=== PATIENT | female | born 1985 | race Caucasian/White ===

== ENCOUNTER 2022-05-24 14:49 | Emergency (ER) | payer OTHER, SELFPAY ==
[2022-05-24 14:54] VITALS: BP 117/75; PULSE 79; RESP 16; TEMP 37; O2SAT 100; BMI 22.6
[2022-05-24] MEDS: 0.9 % SODIUM CHLORIDE 1000 ml 1,000 ML IV (15:47)
[2022-05-24 15:50] LABS: Basophils Absolute Auto 0.01 K/uL (0.00-0.30); Basophils Percent Auto 0.2 % (0.0-3.0); Eosinophils Absolute Auto 0.06 K/uL (0.00-0.50); Eosinophils Percent Auto 1.3 % (0.0-7.0); Hemoglobin* 11.7 gm/dL (12.0-16.0); Lymphocytes Absolute Auto 1.73 K/uL (0.90-2.90); Lymphocytes Percent Auto 36.8 % (20-44); Mean Corpuscular HGB Conc 33 gm/dL (32-36); Mean Corpuscular Hemoglobin 28 pg (26-34); Mean Corpuscular Volume 83 fL (80-100); Monocytes Percent Auto 7.7 % (0.0-11.0); Neutrophils Absolute Auto 2.54 K/uL (1.7-7.0); Platelet Count* 151 K/uL (140-440); RDW Coefficient of Variation % 13.6 % (11.5-15.5); Red Blood Count 4.23 m/uL (4.00-5.20); Slide Review Reflex No
[2022-05-24 16:04] LABS: Chloride* 107 mmol/L (96-114); Potassium* 3.4 mmol/L (3.6-5.1); Sodium* 139 mmol/L (135-149)
[2022-05-24 16:06] VITALS: BP 129/65; PULSE 78; RESP 16; O2SAT 98
[2022-05-24 16:07] LABS: Blood Urea Nitrogen* 9 mg/dL (5-24); Carbon Dioxide* 27 mmol/L (20-32); Creatinine* 0.5 mg/dL (0.5-1.5); Est. Creatinine Clearance* 141.41; Estimated Glomerular Filt Rate 122 ml/min; Glucose* 105 mg/dL (60-115); Prothrombin Time 15.9 Seconds
--- NOTE | 2022-05-24 16:07 | CRLHL7_ITS ---
For Patients: As a result of the Century Cures Act, medical imaging exams and procedure reports are released immediately into your electronic medical record. You may view this report before your referring provider. If you have questions, please contact your health care provider. Indication: Abnormal bleeding Technique: Sonography of the pelvis was performed. The study was performed transvaginally. Color Doppler was performed. Comparison: None Findings: The uterus measures 8.2 x 4.1 x 4.9 centimeters which is normal. Myometrium appears normal. The endometrial canal measures 5 millimeters which is within normal limits. The ovaries are normal in size and appearance. No ovarian or adnexal mass. Flow was demonstrated by color Doppler. The right ovary measures 3.4 x 1.8 x 2.3 centimeters. The left ovary measures 2.9 x 1.7 x 1.7 centimeters. There is no free fluid in the cul-de-sac. Impression: Normal examination Dictated by Bjorn Pate MD @ 05/24/2022 5:07:18 PM (Electronically Signed)
--- NOTE | 2022-05-24 16:07 | ED.NURSE ---
Bedside vaginal exam performed by . Change Lead at bedside. Ambulated to bathroom after and clean pad applied.
[2022-05-24 16:08] LABS: Partial Thromboplastin Time* 35 Seconds (23-33)
--- NOTE | 2022-05-24 16:31 | ED_ITS ---
HPI - Female Genitourinary General Date Seen: 05/24/22 <Jonah Alanis MD - Last Filed: 05/28/22 08:43> Chief complaint: Vaginal Bleeding <Jonah Alanis MD - Last Filed: 05/28/22 08:43> Stated complaint: Excessive Vaginal Bleeding <Jonah Alanis MD - Last Filed: 05/28/22 08:43> Time Seen by Provider: 05/24/22 15:16 <Jonah Alanis MD - Last Filed: 05/28/22 08:43> Source: patient <Jonah Alanis MD - Last Filed: 05/28/22 08:43> Mode of arrival: ambulatory <Jonah Alanis MD - Last Filed: 05/28/22 08:43> Limitations: no limitations <Jonah Alanis MD - Last Filed: 05/28/22 08:43> History of Present Illness HPI Narrative: Patient is a 37-year-old female who has a vaginal bleeding that is excessive today, she is started on Xarelto, for a DVT in the last 3 weeks, she has known uterine polyps, she tells me in the last 8 hours she soaked through a super G tampon every hour, she is however and no pain with this and no feeling that she might pass out or presyncopal symptoms, she does have a baseline history of mild anemia and says she gets always rejected when she gives blood. <Jonah Alanis MD - Last Filed: 05/28/22 08:43> Related Data Home medications: Home Medications Medication Instructions Recorded Confirmed buspirone 5 mg tablet 5 mg PO BID 05/22/22 05/24/22 rivaroxaban 15 mg (42)-20 mg (9) See Rx Instructions PO BID 05/22/22 05/24/22 tablets in a starter pack (Xarelto DVT-PE Treatment 30-Day Starter) vitamin B complex 1 cap PO QDAY 05/22/22 05/24/22 <Jonah Alanis MD - Last Filed: 05/28/22 08:43> Allergies/Adverse reactions: Allergies Allergy/AdvReac Type Severity Reaction Status Date / Time No Known Drug Allergies Allergy Verified 05/24/22 14:59 <Jonah Alanis MD - Last Filed: 05/28/22 08:43> Review of Systems Status of ROS: Reports: 10 or more systems reviewed and unremarkable except as noted in History and below <Jonah Alanis MD - Last Filed: 05/28/22 08:43> [facility] Medical History: Medical History Allergic rhinitis Chronic fatigue AKILA (generalized anxiety disorder) History of abnormal cervical Pap smear History of asthma History of depression History of PSVT (paroxysmal supraventricular tachycardia) History of thyroid nodule <Jonah Alanis MD - Last Filed: 05/28/22 08:43> Surgical History: Surgical History History of appendectomy (2007) History of delivery (01/27/12) History of D&C (04/15/19) <Jonah Alanis MD - Last Filed: 05/28/22 08:43> Family History: Family History Mother Depression Anxiety Father Prostate cancer Paternal Grandfather Stroke Uncle Psychiatric illness <Jonah Alanis MD - Last Filed: 05/28/22 08:43> Social History: Social History Smoking Status: Never smoker Do you use any of these nicotine containing products: None Second hand tobacco smoke exposure: No How often do you have a drink containing alcohol: never AUDIT-C Alcohol total score: 0 Non-prescribed substance use: denies use <Jonah Alanis MD - Last Filed: 05/28/22 08:43> Exam Narrative: Exam Narrative: On examination patient is in no apparent distress in room 7, pupils are equal round reactive to light there is no scleral icterus redness or paleness noted, cranial nerves 3-12 are grossly normal her chest is clear bilaterally with easy respirations, heart sounds no clicks murmurs or gallops normal S1-S2 is noted. Abdomen is scaphoid and soft there is no organomegaly bowel sounds are normal and no tenderness. With nurse Cassandra present bimanual exam is done which shows multi hips office and there is some old blood in the vaginal vault approximately 10-15 mL, no tenderness to palpation, <Jonah Alanis MD - Last Filed: 05/28/22 08:43> Const: Vital Signs, click to edit/add: Vital Signs - 24 hr 05/24/22 14:54 05/24/22 16:06 Temperature 98.6 F Pulse Rate [Pulse Oximeter] 79 78 Respiratory Rate 16 16 Blood Pressure [Ri ght Upper Arm] 117/75 129/65 Pulse Oximetry 100 98 Oxygen Delivery Me thod Room Air Room Air <Jonah Alanis MD - Last Filed: 05/28/22 08:43> Vital Signs, click to edit/add: Vital Signs - 24 hr 05/24/22 14:54 05/24/22 16:06 Temperature 98.6 F Pulse Rate [Pulse Oximeter] 79 78 Respiratory Rate 16 16 Blood Pressure [Ri ght Upper Arm] 117/75 129/65 Pulse Oximetry 100 98 Oxygen Delivery Me thod Room Air Room Air <Adiel Kate MD - Last Filed: 05/24/22 17:52> Course Vital Signs Vital signs: Initial Vital Signs Temperature 98.6 F 05/24/22 14:54 Temperature Source Temporal Artery Scan 05/24/22 14:54 Pulse Rate 79 05/24/22 14:54 Respiratory Rate 16 05/24/22 14:54 Blood Pressure 117/75 05/24/22 14:54 Blood Pressure Mean 89 05/24/22 14:54 Blood Pressure Position Sitting 05/24/22 14:54 Pulse Oximetry 100 05/24/22 14:54 Oxygen Delivery Method 05/24/22 14:54 Vital Signs Temperature 98.6 F 05/24/22 14:54 Pulse Rate 79 05/24/22 14:54 Respiratory Rate 16 05/24/22 14:54 Blood Pressure 117/75 05/24/22 14:54 Pulse Oximetry 100 05/24/22 14:54 Oxygen Delivery Method 05/24/22 14:54 Temperature 98.6 F 05/24/22 14:54 Pulse Rate 56 L 05/24/22 18:15 Respiratory Rate 16 05/24/22 18:15 Blood Pressure 127/80 05/24/22 18:15 Pulse Oximetry 100 05/24/22 18:15 Oxygen Delivery Method 05/24/22 18:15 <Jonah Alanis MD - Last Filed: 05/28/22 08:43> Initial Vital Signs Temperature 98.6 F 05/24/22 14:54 Temperature Source Temporal Artery Scan 05/24/22 14:54 Pulse Rate 79 05/24/22 14:54 Respiratory Rate 16 05/24/22 14:54 Blood Pressure 117/75 05/24/22 14:54 Blood Pressure Mean 89 05/24/22 14:54 Blood Pressure Position Sitting 05/24/22 14:54 Pulse Oximetry 100 05/24/22 14:54 Oxygen Delivery Method 05/24/22 14:54 Vital Signs Temperature 98.6 F 05/24/22 14:54 Pulse Rate 79 05/24/22 14:54 Respiratory Rate 16 05/24/22 14:54 Blood Pressure 117/75 05/24/22 14:54 Pulse Oximetry 100 05/24/22 14:54 Oxygen Delivery Method 05/24/22 14:54 Temperature 98.6 F 05/24/22 14:54 Pulse Rate 56 L 05/24/22 18:15 Respiratory Rate 16 05/24/22 18:15 Blood Pressure 127/80 05/24/22 18:15 Pulse Oximetry 100 05/24/22 18:15 Oxygen Delivery Method 05/24/22 18:15 <Adiel Kate MD - Last Filed: 05/24/22 17:52> MDM - Female Genitourinary MDM Narrative Medical decision making narrative: Through this evaluation I considered multiple diagnosis is including , threatened , dysfunctional vaginal bleeding, coagulopathy, endometritis, or other options. I spoke to the patient, we will do an ultrasound to further diagnosis also and I will have the oncoming ER physician see her for disposition and data gathering of her labs. Consideration of discussion with Gynecology, she is a patient of our clinic here. <Jonah Alanis MD - Last Filed: 05/28/22 08:43> Through this evaluation I considered multiple diagnosis is including , threatened , dysfunctional vaginal bleeding, coagulopathy, endometritis, or other options. I spoke to the patient, we will do an ultrasound to further diagnosis also and I will have the oncoming ER physician see her for disposition and data gathering of her labs. Consideration of discussion with Gynecology, she is a patient of our clinic here. Hemoglobin returns reassuring at 11.7. Transvaginal ultrasound also shows no acute findings. I did speak with the fire pilot physician on-call, Dr. Wyatt Luther, regarding these findings. It seems okay for the patient to return home to continue current plans. She could start progesterone if bleeding is excessive she becomes more symptomatic. The patient understands these options and states that she is happy to see her reassuring hemoglobin and will prefer not to take a hormone treatment unless necessary. She plans to contact her primary physician in this regard if needed. <Adiel Kate MD - Last Filed: 05/24/22 17:52> Lab Data Labs: Lab Results 05/24/22 05/24/22 05/24/22 Range/Units 15:20 15:30 15:30 WBC 4.70 (4.50-11.00) K/uL RBC 4.23 (4.00-5.20) m/uL Hgb 11.7 L (12.0-16.0) gm/dL Hct 35.0 (33.0-51.0) % MCV 83 (80-100) fL MCH 28 (26-34) pg MCHC 33 (32-36) gm/dL RDW Coeff of [place]o 13.6 (11.5-15.5) % Plt Count 151 (140-440) K/uL Neut % (Auto) 54.0 (42.0-72.0) % Lymph % (Auto) 36.8 (20-44) % [place] % (Auto) 7.7 (0.0-11.0) % Eos % (Auto) 1.3 (0.0-7.0) % Baso % (Auto) 0.2 (0.0-3.0) % Neut # (Auto) 2.54 (1.7-7.0) K/uL Lymph # (Auto) 1.73 (0.90-2.90) K/uL [place] # (Auto) 0.40 (0.00-0.90) K/UL Eos # (Auto) 0.06 (0.00-0.50) K/uL Baso # (Auto) 0.01 (0.00-0.30) K/uL INR 1.20 H (0.91-1.10) APTT 35 H (23-33) Seconds Sodium (135-149) mmol/L Potassium (3.6-5.1) mmol/L Chloride (96-114) mmol/L Carbon Dioxide (20-32) mmol/L BUN (5-24) mg/dL Creatinine (0.5-1.5) mg/dL Estimated Creat Clear Estimated GFR ml/min Glucose (60-115) mg/dL Calcium (8.4-10.6) mg/dL HCG, Qual Negative (Negative) 05/24/22 Range/Units 15:30 WBC (4.50-11.00) K/uL RBC (4.00-5.20) m/uL Hgb (12.0-16.0) gm/dL Hct (33.0-51.0) % MCV (80-100) fL MCH (26-34) pg MCHC (32-36) gm/dL RDW Coeff of [place]o (11.5-15.5) % Plt Count (140-440) K/uL Neut % (Auto) (42.0-72.0) % Lymph % (Auto) (20-44) % [place] % (Auto) (0.0-11.0) % Eos % (Auto) (0.0-7.0) % Baso % (Auto) (0.0-3.0) % Neut # (Auto) (1.7-7.0) K/uL Lymph # (Auto) (0.90-2.90) K/uL [place] # (Auto) (0.00-0.90) K/UL Eos # (Auto) (0.00-0.50) K/uL Baso # (Auto) (0.00-0.30) K/uL INR (0.91-1.10) APTT (23-33) Seconds Sodium 139 (135-149) mmol/L Potassium 3.4 L (3.6-5.1) mmol/L Chloride 107 (96-114) mmol/L Carbon Dioxide 27 (20-32) mmol/L BUN 9 (5-24) mg/dL Creatinine 0.5 (0.5-1.5) mg/dL Estimated Creat Clear 141.41 Estimated GFR 122 ml/min Glucose 105 (60-115) mg/dL Calcium 9.0 (8.4-10.6) mg/dL HCG, Qual (Negative) <Jonah Alanis MD - Last Filed: 05/28/22 08:43> Lab Results 05/24/22 05/24/22 05/24/22 Range/Units 15:20 15:30 15:30 WBC 4.70 (4.50-11.00) K/uL RBC 4.23 (4.00-5.20) m/uL Hgb 11.7 L (12.0-16.0) gm/dL Hct 35.0 (33.0-51.0) % MCV 83 (80-100) fL MCH 28 (26-34) pg MCHC 33 (32-36) gm/dL RDW Coeff of [place] 13.6 (11.5-15.5) % Plt Count 151 (140-440) K/uL Neut % (Auto) 54.0 (42.0-72.0) % Lymph % (Auto) 36.8 (20-44) % [place] % (Auto) 7.7 (0.0-11.0) % Eos % (Auto) 1.3 (0.0-7.0) % Baso % (Auto) 0.2 (0.0-3.0) % Neut # (Auto) 2.54 (1.7-7.0) K/uL Lymph # (Auto) 1.73 (0.90-2.90) K/uL [place] # (Auto) 0.40 (0.00-0.90) K/UL Eos # (Auto) 0.06 (0.00-0.50) K/uL Baso # (Auto) 0.01 (0.00-0.30) K/uL INR 1.20 H (0.91-1.10) APTT 35 H (23-33) Seconds Sodium (135-149) mmol/L Potassium (3.6-5.1) mmol/L Chloride (96-114) mmol/L Carbon Dioxide (20-32) mmol/L BUN (5-24) mg/dL Creatinine (0.5-1.5) mg/dL Estimated Creat Clear Estimated GFR ml/min Glucose (60-115) mg/dL Calcium (8.4-10.6) mg/dL HCG, Qual Negative (Negative) 01/19/23 Range/Units 15:30 WBC (4.50-11.00) K/uL RBC (4.00-5.20) m/uL Hgb (12.0-16.0) gm/dL Hct (33.0-51.0) % MCV (80-100) fL MCH (26-34) pg MCHC (32-36) gm/dL RDW Coeff of [place]o (11.5-15.5) % Plt Count (140-440) K/uL Neut % (Auto) (42.0-72.0) % Lymph % (Auto) (20-44) % [place] % (Auto) (0.0-11.0) % Eos % (Auto) (0.0-7.0) % Baso % (Auto) (0.0-3.0) % Neut # (Auto) (1.7-7.0) K/uL Lymph # (Auto) (0.90-2.90) K/uL [place] # (Auto) (0.00-0.90) K/UL Eos # (Auto) (0.00-0.50) K/uL Baso # (Auto) (0.00-0.30) K/uL INR (0.91-1.10) APTT (23-33) Seconds Sodium 139 (135-149) mmol/L Potassium 3.4 L (3.6-5.1) mmol/L Chloride 107 (96-114) mmol/L Carbon Dioxide 27 (20-32) mmol/L BUN 9 (5-24) mg/dL Creatinine 0.5 (0.5-1.5) mg/dL Estimated Creat Clear 141.41 Estimated GFR 122 ml/min Glucose 105 (60-115) mg/dL Calcium 9.0 (8.4-10.6) mg/dL HCG, Qual (Negative) <Adiel Kate MD - Last Filed: 05/24/22 17:52> Imaging Data US Vaginal: Radiologist's impression: Findings: The uterus measures 8.2 x 4.1 x 4.9 centimeters which is normal. Myometrium appears normal. The endometrial canal measures 5 millimeters which is within normal limits. The ovaries are normal in size and appearance. No ovarian or adnexal mass. Flow was demonstrated by color Doppler. The right ovary measures 3.4 x 1.8 x 2.3 centimeters. The left ovary measures 2.9 x 1.7 x 1.7 centimeters. There is no free fluid in the cul-de-sac. Impression: Normal examination <Adiel Kate MD - Last Filed: 05/24/22 17:52> Discharge Plan Discharge Clinical Impression: Dysfunctional uterine bleeding <Jonah Alanis MD - Last Filed: 05/28/22 08:43> Patient Disposition: Home, Self-Care <Jonah Alanis MD - Last Filed: 05/28/22 08:43> Condition: Stable <Jonah Alanis MD - Last Filed: 05/28/22 08:43> Additional Instructions: Continue current plans. Follow-up with OBGYN physician and hack driver as needed or scheduled. Return if worsening. <Jonah Alanis MD - Last Filed: 05/28/22 08:43> Prescriptions: No Action Xarelto DVT-PE Treat 30d Start 15 mg (42)- 20 mg (9) tablets,dose pack See Rx Instructions PO BID Rx Instructions: 15 mg twice daily until 05/29/22 then decrease to 20mg daily. orally twice a day; buspirone 5 mg tablet 5 mg PO BID vitamin B complex Capsule 1 cap PO QDAY <Jonah Alanis MD - Last Filed: 05/28/22 08:43> Follow Up/Referrals: Amita Thurman MD [Primary Care Provider] - <Jonah Alanis MD - Last Filed: 05/28/22 08:43> Stand Alone Forms: My[facility] Info Instructions <Jonah Alanis MD - Last Filed: 05/28/22 08:43>
[2022-05-24 17:22] LABS: HCG Qualitative Serum* Negative (Negative)
[2022-05-24 18:15] VITALS: BP 127/80; PULSE 56; RESP 16; O2SAT 100
== END 2022-05-24 18:09 | disposition home or self-care (01) ==
PROVIDERS: Family Medicine; Emergency Provider Emergency Medicine Emergency Medical Services; PCP Family Medicine
DX: N93.8 Other specified abnormal uterine and vaginal bleeding (principal)
CPT/HCPCS: 36415; 76830; 80048; 84703; 85025; 85610; 85730; 99284; J7030

== ENCOUNTER 2023-10-09 06:17 | Day surgery (SDC) | payer OTHER, SELFPAY ==
[2023-10-09] VITALS (7 sets, daily range): BP systolic 98–132; BP diastolic 74–92; PULSE 59–81; RESP 16–20; TEMP 36.2–37.2; O2SAT 97–100; BMI 24.5
--- OUTSIDE RECORDS SUMMARY | 2023-10-09 06:20 | XMS_ITS | Clinical Summary ---
Author Organization [facility] [facility] Address [place], [place] [address] Care Team Providers Care Scrum Project Manager Name Role Phone Amita Thurman MD Primary Care Provider Linda Parekh MD Unavailable [phone] Julia Hassan NP Unavailable Nikunj Wong Unavailable Allergies No known active allergies Medications Medication Sig Dispensed Refills Start Date End Date Status VITAMIN B COMPLEX-100 ORAL 1 Capsule. 05/22/2022 Active MULTIVITAMIN WITH IRON ORAL Take by mouth. Active cholecalciferol (Vitamin D-3) 2,000 unit capsule Take 2,000 units by mouth once daily. Active calcium carbonate (CALTRATE) 600 mg calcium (1,500 mg) tablet Take 1 Tablet (600 mg) by mouth two times daily with meals. 08/08/2023 Active busPIRone (BUSPAR) 10 mg tabletIndications :Anxiety Take 1 Tablet (10 mg) by mouth two times daily. 180 Tablet 09/24/2023 Active busPIRone (BUSPAR) 5 mg tabletIndications :Anxiety TAKE 1 TABLET BY MOUTH TWICE DAILY 180 Tablet 1 06/03/2023 09/24/2023 Discontinued (*Medication adjustment) rivaroxaban (Xarelto DVT-PE Treat 30d Start) 15 mg (42)- 20 mg (9) starter packIndications:A cute deep vein thrombosis (DVT) of right femoral vein (HC) Take as directed on package. 51 Tablet 08/06/2023 09/24/2023 Discontinued (*Med complete/Reg imen complete/Lev el of care change) rivaroxaban (Xarelto DVT-PE Treat 30d Start) 15 mg (42)- 20 mg (9) starter packIndications:A cute deep vein thrombosis (DVT) of femoral vein of right lower extremity (HC) Take as directed on package. 51 Tablet 08/07/2023 09/24/2023 Discontinued (*Med complete/Reg imen complete/Lev el of care change) Active Problems Problem Noted Date Diagnosed Date Menorrhagia with irregular cycle 09/24/2023 Iron deficiency anemia due to chronic blood loss 09/24/2023 Paroxysmal SVT (supraventricular tachycardia) Overview: 2002 consult scanned in with cardiology 2020 [place]iop[place] confirmed. Echocardiogram ordered. Endometrial polyp 04/14/2019 Thyroid nodule 06/16/2014 Overview: Stable 12/2014. Repeat in 1 yr Generalized anxiety disorder 01/22/2012 Sebaceous cyst 11/13/2011 SAGAR I (cervical intraepithelial neoplasia I) Overview: 01/15/06 ASCUS/HPV+ 01/31/06 [place]: SAGAR I 06/20/06 LSIL 02/06/07 ASCUS/HPV Negative 01/06/09 ASCUS/HPV Negative 09/19/09 ASCUS/HPV Negative 11/07/10 ASCUS/HPV Negative 11/13/11 ASCUS/HPV Negative 12/12/11 [place]: Squamous cell changes suspicious for HPV 12/19/15 ASCUS/HPV Negative 12/17/14 NIL/HPV Negative 12/19/15 ASCUS/HPV Negative 11/16/16 NIL/HPV Negative 03/04/18 NIL/HPV Negative 11/17/2020 NIL/HPV negative Plan: routine screening Pap/HPV due 11/2025 Resolved Problems Problem Noted Date Diagnosed Date Resolved Date Rh negative status during 10/28/2012 11/16/2016 Group B streptococcal infection 07/10/2012 11/16/2016 Overview: Prior pregnacy History of depres frank, currently 07/10/2012 11/16/2016 Supervision of other normal 06/06/2012 11/16/2016 Overview: Considering elective . Had a very rough recovery with tears and pain. Reviewed possible assistance post and hopefully this recovery will be easier but it is her decision about elective and can refer to [facility] 12/04/2012 Group B strep negative Breech decided against eversion will do primary unless the baby rotates Preop exam 01/13/2013 Doing PLACENTA ENCAPSULATION save placenta Last Assessment & Plan: Has concerns about during and after delivery. Had a rough recovery and depression. Worried about what will happen this time. It's a BOY Chest wall muscle strain 11/07/201002/2013 Adjustment disorder with mix ed anxiety and depressed mood 01/24/2010 01/22/2012 Post depression 11/11/200911/07 Supervision of normal first 03/10/2009 11/07/2010 Pap smear abnormality of cer vix with ASCUS favoring benign 01/04/2009 03/18/2018 Overview: 01/2009; 09/2009; 11/2010; 11/2011; 12/2015; Pap/ HPV due 11/2016 Rash and other nonspecific skin eruption 12/21/2008 01/13/2013 Mild dysplasia of cervix 02/06/2007 Low grade squamous intraepit helial lesion (LGSIL) on cervical Pap smear 06/06/2006 03/18/2018 Overview: 06/2006 Encounters Date Type Department Care Team Description 09/24/2023 8:45 AM CDT Preop Visit [facility] [place] [address] [address] Amita Thurman MD [facility] ) 09/24/2023 Travel 08/08/2023 2:50 PM CDT Office Visit [facility] [address] [place] [address] Amita Thurman MD Follow Up (Urgent Care 08/06/2023) 08/08/2023 Travel 08/06/2023 7:27 PM CDT - 08/06/2023 9:43 PM CDT Emergency [facility] [place] [address] [address] Lindsay Solis PA Acute deep vein thrombosis (DVT) of right femoral vein (HC) (Primary Dx) Discharge Disposition: Home Self Care 08/06/2023 Nurse Triage [facility] [address] [place] [address] Lina Torres RN Leg Pain/problem (Hx dvt) 07/29/2023 9:30 AM CDT Telemedicine [facility] and [address] [address] Medical Nutrition Therapy; Telehealth 07/27/2023 Travel from Last 3 Months Immunizations Name Administration Dates Next Due COVID-19 vaccine ([employer] 30mcg/0.3mL) MARLENE LAUGHLIN 07/20/2020,07/01/2020 Hepatitis A (Adult) 02/09/2008,02/19/2005 Hepatitis B (Adult) 08/20/2002,12/18/2000,1991 Inactivated Polio Vaccine 04/19/2005 Influenza A (H1N1), Inactivated 03/11/2009 Influenza, IIV3 (Age >=3 years) 01/21/20 13,02/20/2011,02/07/2010,02/03,02/19/2005 Influenza, IIV4 03/05/2019, 8,06/24/2017,04/22 MMR 09/09/1995,01/14/1985 Meningococcal Vaccine (Menactra) 09/19/2001 Td (Age >=7 Years) 04/19/2005 Tdap 09/24/2023,12/04/2012,11/13/2011 Family History Medical History Relation Name Comments Good Health Brother Cancer-prostate Father diagnosed 20 10 Psychiatric illness Maternal Uncle Psychiatric illness Mother Anxiety and depression menopause Stroke Paternal Grandmother Good Health Sister Relation Name Status Comments Brother Father Maternal Uncle Mother Alive Paternal Grandmother Sister Social History Tobacco Use Types Packs/Day Years Used Date Smoking Tobacco: Never Smokeless Tobacco: Never Tobacco Cessation:Counseling Given: Yes Alcohol Use Standard Drinks/Week Comments Yes 0 (1 standard drink = 0.6 oz pur e alcohol) once monthly PHQ-2 Answer Date Recorded PHQ-2 TOTAL SCORE 2 05/03/2023 Social Connections Answer Date Recorded Frequency of Communication with Friends and Fami ly 0 01/18/2023 Financial Resource Strain Answer Date R ecorded Difficulty of Paying Living Expenses 3 01/18/2023 Difficulty of Paying Living Expenses Not on file 01/18/2023 Food Insecurity Answer Date Recorded Worried About Running Out of Food in the Last Ye ar 1 01/18/2023 Transportation Needs Answer Date Record ed Lack of Transportation (Medical) 1 01/18/2023 Housing Stability Answer Date Recorded Unable to Pay for Housing in the Last Year 1 01/18/2023 Sex and Gender Information Value Date Recorded Sex Assigned at Not on file Gender Identity Not on file Sexual Orientation Not on file Obstetrics History Para Term AB IAB SAB Ectopic Multiple Livin g Live Births 2 2 2 0 0 0 0 0 0 2 2 Date Outcome GA Total Labor Labor/2nd/3rd Weight Sex Delivery Anes PTL Gilma A1 A5 Name Cl in 08/05 Term 40w 2d 11h 00m/ 3.88 kg (8 lb 9 oz) F Vag Bev ng 5 9 Everh art Delivery Location:[place] 01/26 Term M Bev ng Last Filed Vital Signs Vital Sign Reading Time Taken Comments Blood Pressure 108/70 09/24/2023 8:46 AM CDT Pulse 62 09/24/2023 8:46 AM CDT Temperature 37.2 ??C (98.9 ??F) 08/06/2023 7:48 PM CD T Respiratory Rate 18 08/06/2023 7:48 PM CDT Oxygen Saturation 99% 09/24/2023 8:46 AM CDT Inhaled Oxygen Concentration - - Weight 68.9 kg (152 lb) 09/24/2023 8:46 AM CDT Height 169 cm (5' 6.54) 09/24/2023 8:46 AM CDT Body Mass Index 24.14 09/24/2023 8:46 AM CDT Plan of Treatment Upcoming Encounters Date Type Department Care Team (Late st Contact Info) Description 10/14/2023 9:30 AM CDT Telemedicine [address] [address] Nikunj Wong, LN [address] [place] [address] Health Maintenance Due Date Last Done Comments Hepatitis C screening for age 18-79 2001 COVID-19 vaccine series (2022- season) 2023 03/27/2021, 07/20/2020, 07/01/2020 Influenza for age 9-49 01/05/2024 9, 03/04/2018, 06/24/2017, Additional history exists Depression screening for age 12+ 05/03/2024 05/03/2023, 2022, 05/08/2022, Additional history exists BMI (ht and wt on same day) for age 18+ 09/23/2024 09/24/2023, 05/08/2022, 11/17/2020, Additional history exists Pap test for age 21-65 11/17/2025 , 11/17/2020, 03/04/2018, Additional history exists Tetanus booster 09/23/2033 09/24/2023, 08/0 05/2012, 11/13/2011, Additional history exists HIV for age 15-65 Completed 06/06/2012, 12/31/2008 Tdap Completed 09/24/2023, 08/0 05/2012, 11/13/2011 Pneumococcal series for age 6-64 Aged Out No longer eligible based on patient's age to complete this topic Procedures Procedure Name Priority Date/Time Associated Diagnosis Comments US VENOUS LOWER EXTREMITY RIGHT STAT 08/06/2023 8:11 PM CDT CBC WITH AUTO DIFFERENTIAL STAT 08/06/2023 9:09 AM CDT PROTIME-INR STAT 08/06/2023 9:09 AM CDT D-DIMER,QUANTITATIVE STAT 08/06/2023 9:09 AM CDT COMP METABOLIC PANEL STAT 08/06/2023 9:09 AM CDT CBC WITH AUTO DIFFERENTIAL STAT 08/06/2023 9:09 AM CDT ALL SOURCE ANALYST THIN PREP PAP SCREEN IMAGED Routine 11/17/2020 11:56 AM CDT Cervical cancer screening ANTI HIV 1/2 Routine 06/06/2012 11:11 AM HAIRSPRING TRUER Supervision of other normal from Last 3 Months or Most Recently Relevant to Health Maintenance Results * US VENOUS LOWER EXTREMITY RIGHT (08/06/2023 8:11 PM CDT) Anatomical Region Laterality Modality LEGS, LEG R, Abdomen Ultrasound 08/06/2023 8:11 PM CDT Impressions 08/06/2023 8:13 PM CDT 1. ??Small amount of DVT within the distal right femoral vein. This appears to be the site of previously seen thrombus on 05/07/2022. Narrative 08/06/2023 8:13 PM CDT For Patients: As a result of the Century Cures Act, medical imaging exams and procedure reports are released immediately into your electronic medical record. You may view this report before your referring provider. If you have questions, please contact your health care provider. EXAM: US VENOUS LOWER EXTREMITY RIGHT LOCATION: [facility] [place] DATE: 08/06/2023 INDICATION: Pain COMPARISON: 05/07/2022. TECHNIQUE: Venous Duplex ultrasound of the right lower extremity with and without compression, augmentation and duplex. Color flow and spectral Doppler with waveform analysis performed. FINDINGS: Exam includes the common femoral, femoral, popliteal, and contralateral common femoral veins as well as segmentally visualized deep calf veins and greater saphenous vein. RIGHT: There is a short segment of nonocclusive deep venous thrombus is seen within the right distal femoral vein. Remaining deep veins in the right lower extremity are free of thrombus and show normal compressibility and flow. No superficial thrombophlebitis. No popliteal cyst. Procedure Note Mesfin Gonzalez MD - 08/06/2023 For Patients: As a result of the 21st Century Cures Act, medical imagingexams and procedure reports are released immediately into your electronicmedical record. You may view this report before your referring provider.If you have questions, please contact your health care provider. EXAM: US VENOUS LOWER EXTREMITY RIGHT LOCATION: [facility] [place] DATE: 08/06/2023 INDICATION: Pain COMPARISON: 05/07/2022. TECHNIQUE: Venous Duplex ultrasound of the right lower extremity with andwithout compression, augmentation and duplex. Color flow and spectralDoppler with waveform analysis performed. FINDINGS: Exam includes the common femoral, femoral, popliteal, andcontralateral common femoral veins as well as segmentally visualized deepcalf veins and greater saphenous vein. RIGHT: There is a short segment of nonocclusive deep venous thrombus isseen within the right distal femoral vein. Remaining deep veins in theright lower extremity are free of thrombus and show normal compressibilityand flow. No superficial thrombophlebitis. No popliteal cyst. IMPRESSION: 1. Small amount of DVT within the distal right femoral vein. This appearsto be the site of previously seen thrombus on 05/07/2022. Jaymie Mayers MD US * (ABNORMAL) CBC WITH AUTO DIFFERENTIAL (08/06/2023 9:09 AM CDT) WHITE BLOOD COUNT 8.5 4.6 - 10.2 thou/cu mm 08/06/2023 9:15 PM CDT [facility] RED BLOOD COUNT 4.57 4.04 - 6.13 mil/cu mm 08/06/2023 9:15 PM CDT [facility] HEMOGLOBIN 14.4 12.2 - 18.1 g/dL 08/06/2023 9:15 PM CDT [facility] HEMATOCRIT 43.3 37.7 - 53.7 % 08/06/2023 9:15 PM CDT [facility] MCV 95 80 - 97 fL 08/06/2023 9:15 PM CDT [facility] MCH 31.5(H) 27.0 - 31.2 pg 08/06/2023 9:15 PM CDT [facility] MCHC 33.3 31.8 - 35.4 g/dL 08/06/2023 9:15 PM CDT [facility] RDW 13.3 11.6 - 14.8 % 08/06/2023 9:15 PM CDT [facility] PLATELET COUNT 157 142 - 424 thou/cu mm 08/06/2023 9:15 PM CDT [facility] MPV 8.5 6.5 - 11.0 fL 08/06/2023 9:15 PM CDT [facility] % NEUT 65.0 37.0 - 80.0 % 08/06/2023 9:15 PM CDT [facility] % LYMPH 26.8 10.0 - 50.0 % 08/06/2023 9:15 PM CDT [facility] % MONO 6.9 <=12.0 % 08/06/2023 9:15 PM CDT [facility] % EOS 1.1 <=7.0 % 08/06/2023 9:15 PM CDT [facility] % BASO 0.2 <=2.5 % 08/06/2023 9:15 PM CDT [facility] ABSOLUTE NEUTROPHILS 5.5 2.0 - 6.9 thou/cu mm 08/06/2023 9:15 PM CDT [facility] ABSOLUTE LYMPHOCYTES 2.3 0.6 - 3.4 thou/cu mm 08/06/2023 9:15 PM CDT [facility] ABSOLUTE MONOCYTES 0.6 <=0.9 thou/cu mm 08/06/2023 9:15 PM CDT [facility] ABSOLUTE EOSINOPHILS 0.1 <=0.7 thou/cu mm 08/06/2023 9:15 PM CDT [facility] ABSOLUTE BASOPHILS 0.0 <=0.3 thou/cu mm 08/06/2023 9:15 PM CDT [facility] Blood BLOOD SPECIMEN / Unknown Non-Lab Venipuncture / Unknown 08/06/2023 9:09 AM CDT 08/06/2023 9:11 PM CDT Lindsay GERMAN HEMATOLOGY [facility] [address] [place] [address] * (ABNORMAL) PROTIME-INR (08/06/2023 9:09 AM CDT) [facility] INR 1.0(L) 1.2 - 1.5 08/06/2023 9:32 PM CDT [facility] Blood BLOOD SPECIMEN / Unknown Non-Lab Venipuncture / Unknown 08/06/2023 9:09 AM CDT 08/06/2023 9:11 PM CDT [facility] - 08/06/2023 9:32 PM CDT Therapeutic Range 2.0-3.0 for most anticoagulated patients 2.5-3.5 or 4.0 for high risk patients Lindsay GERMAN HEMATOLOGY Performing Organization Address [facility] de Phone Number [facility] [address] [place] [address] * D-DIMER,QUANTITATIVE (08/06/2023 9:09 AM CDT) [facility] D-DIMER,QUANTIT ATIVE 0.41 <0.50 FEU mcg/mL 08/06/2023 9:32 PM CDT [facility] Blood BLOOD SPECIMEN / Unknown Non-Lab Venipuncture / Unknown 08/06/2023 9:09 AM CDT 08/06/2023 9:11 PM CDT [facility] - 08/06/2023 9:32 PM CDT The cut off value for exclusion of Deep Vein Thrombosis and/or Pulmonary Embolism is 0.50 FEU mcg/ml For patients greater than 50 years of age the upper limit is age dependent and was calculated with the formula:(PATIENT AGE x 0.01) FEU mcg/mL = Upper limit of normal range Lindsay GERMAN HEMATOLOGY Performing Organization Address [facility] Co de Phone Number [facility] [address] [place] [address] * (ABNORMAL) COMP METABOLIC PANEL (08/06/2023 9:09 AM CDT) [facility] SODIUM 136(L) 137 - 145 mmol/L 08/06/2023 9:29 PM CDT [facility] POTASSIUM 3.6 3.5 - 5.1 mmol/L 08/06/2023 9:29 PM CDT [facility] CHLORIDE 106 98 - 107 mmol/L 08/06/2023 9:29 PM CDT [facility] CO2,TOTAL 22 22 - 30 mmol/L 08/06/2023 9:29 PM CDT [facility] ANION GAP 8 8 - 12 08/06/2023 9:29 PM CDT [facility] GLUCOSE,RANDOM 100 74 - 106 mg/dL 08/06/2023 9:29 PM CDT [facility] CALCIUM 9.7 8.4 - 10.2 mg/dL 08/06/2023 9:29 PM CDT [facility] BUN 18(H) 7 - 17 mg/dL 08/06/2023 9:29 PM CDT [facility] CREATININE 0.79 0.52 - 1.04 mg/dL 08/06/2023 9:29 PM CDT [facility] BUN/CREAT RATIO 23(H) 10 - 20 9:29 PM CDT [facility] ALBUMIN 5.0 3.5 - 5.0 g/dL 08/06/2023 9:29 PM CDT [facility] PROTEIN,TOTAL 8.0 6.3 - 8.2 g/dL 08/06/2023 9:29 PM CDT [facility] GLOBULIN 3.0 2.3 - 3.5 g/dL 08/06/2023 9:29 PM CDT [facility] A/G RATIO 1.7 1.7 - 2.2 08/06/2023 9:29 PM CDT [facility] BILIRUBIN,TOTAL 0.3 0.2 - 1.3 mg/dL 08/06/2023 9:29 PM CDT [facility] ALK PHOSPHATASE 72 38 - 126 IU/L 08/06/2023 9:29 PM CDT [facility] AST (SGOT) 33 15 - 46 IU/L 08/06/2023 9:29 PM CDT [facility] ALTv (SGPT) 20 <35 U/L 08/06/2023 9:29 PM CDT [facility] eGFR >90 >90 mL/min/1.7 3m2 08/06/2023 9:29 PM CDT [facility] Comment:As of 2021, eG FR is calculated by the CKD-EPI creatinine equation without race adjustment. eGFR can be influenced by muscle mass, exercise, and diet. The reported eGFR is an estimation only and is only applicable if the renal function is stable. Blood BLOOD SPECIMEN / Unknown Non-Lab Venipuncture / Unknown 08/06/2023 9:09 AM CDT 08/06/2023 9:11 PM CDT Lindsay GERMAN CHEMISTRY [facility] [address] [place] [address] * ALL SOURCE ANALYST THIN PREP PAP SCREEN IMAGED (11/17/2020 11:56 AM CDT) Case Report Gynecologic Cytology Report ? Case: [id number] ? Authorizing Provider: ??Amita Thurman MD ? Collected: ? 11/17/2020 1156 ? Ordering Location: ? [facility] ?? Received: ?11/17/2020 1238 ? Clinic ? First Screen: ?Richar Marrero ? Specimen: ?ALL SOURCE ANALYST ThinPrep Vial Screening, Cervical ? 11/28/2020 1:59 PM CDT [facility] INTERPRETATION/ RESULT NEGATIVE FOR INTRAEPITHELIAL LESION OR MALIGNANCY (NIL) (none) 11/28/2020 1:59 PM CDT [facility] IMEN ADEQUACY Satisfactory for evaluation Endocervical component present 11/28/2020 1:59 PM CDT [facility] HPV REQUEST HPV and PAP 11/28/2020 1:59 PM CDT [facility] Date of LMP 11/06/2020 11/28/2020 1:59 PM CDT [facility] Last Pap Date 03/04/18 11/28/2020 1:59 PM CDT [facility] Last Pap Result NIL 1:59 PM CDT [facility] Abnormal Pap or [place] Bx in last 5 years No 11/28/2020 1:59 PM CDT [facility] Menstrual Status Regular Periods 11/28/2020 1:59 PM CDT [facility] [place] Bx Done Today No 11/28/2020 1:59 PM CDT [facility] Additional Information None given 11/28/2020 1:59 PM CDT [facility] Comment: Cytology is screened at [facility] - [address] [address] and [facility] - [address] [place] [address], [place] [address] and [facility] - [address], [place] [address] Interpreted at [facility] - [address], [place] [address] Automated Review Successful 11/28/2020 1:59 PM CDT [facility] Comment:Specimen processed s uccessfully by automated human services instructor device, [employer] System, [employer] ANCILLARY TESTING ALL SOURCE ANALYST HPV Ordered, Please see separate report 11/28/2020 1:59 PM CDT [facility] Note The pap test is a screening technique, not a diagnostic procedure. It is used primarily to screen for squamous cancers and precursor lesions. Published studies have shown that it is subject to both false negative and false positive results. The pap test should not be used as the sole means to diagnose or exclude pre-malignant and malignant lesions. 11/28/2020 1:59 PM CDT [facility] Other (Cervical) Non-Blood / Unknown 11/17/2020 11:56 AM CDT 11/17/2020 12:38 PM CDT Amita Thurman MD PATHOLOGY/CYTOLOGY [facility] [address] [place] [address], * ANTI HIV 1/2 (06/06/2012 11:11 AM HAIRSPRING TRUER) ANTI HIV 1/2 Non-reacti ve [facility] Blood specimen (specimen) BLOOD SPECIMEN / Unknown 06/06/2012 11:11 AM HAIRSPRING TRUER 06/06/2012 11:01 AM HAIRSPRING TRUER Mavis Lima NP SEND OUTS [facility] INTERNAL ZIP [address] [place] [address] from Last 3 Months or Most Recently Relevant to Health Maintenance Care Teams Scrum Project Manager Relationship Specialty Start Date End Date Amita Thurman MD [address] [place] [address] PCP - General Family Practice 04/21/18 Linda Parekh MD [address] [place] [address] Medical Oncologist Hematology and Oncology 06/13/22 Julia Hassan NP [address] [place] [address] Nurse Practitioner Hematology and Oncology 06/13/[address] [place] [address] Project Manager Finance 07/29/23
[2023-10-09 06:38] LABS: Ur HCG Qualitative* Negative (Negative)
[2023-10-09] MEDS: SODIUM CHLORIDE 0.9 % (FLUSH) 10 ML SYRINGE IVF (07:10)
[2023-10-09] MEDS: LACTATED RINGERS 1000 ML 1,000 ML 100 ML IV (07:10)
--- NOTE | 2023-10-09 07:52 | P.GYNPRC_ITS ---
Procedure Note Date of procedure: 10/09/23 Will [facility] bill your pro fee for this procedure?: Yes Pre-op diagnosis: 1. Menorrhagia. 2. History of DVT. Post-op diagnosis: Same. Procedure: 1. Hysteroscopy. 2. D&C with TruClear. 3. Anum endometrial ablation. Anesthesia: MAC and local (Paracervical block) Complications: None. Surgeon: Natalie Dillon MD. Estimated blood loss (mL): 5 Pathology: specimen obtained, sent to pathology (Endometrial curettings.) Condition: stable Disposition: same day Findings: Normal-appearing endometrial cavity. Thickened shaggy endometrial tissue along the anterior wall. Normal appearing tubal ostia bilaterally. Procedure Description: After obtaining informed consent, the patient was taken to the operating room where she received monitored anesthesia care. She was prepared and draped in the normal sterile fashion, in the dorsal lithotomy position. The bladder was emptied of clear urine using an I and O catheter. An open-sided bivalve speculum was introduced into the vagina and the cervix visualized. The anterior lip of the cervix was grasped with a single-tooth tenaculum for traction. A paracervical block was then administered using a total of 20 mL of a 50/50 mixture of 0.25% Marcaine and 1% lidocaine plain. The uterus was gently sounded. Sound length was 9 cm. The cervix length was determined to be 3.5 cm using Hegar dilators, yielding a uterine cavity length of 5.5 cm. The cervix was gently dilated to a #6 Hegar dilator. A hysteroscope was then advanced under direct visualization through the cervix into the uterine cavity. Sterile normal saline was used as distending medium. The uterine cavity was carefully inspected with the findings noted above. The TruClear morcellator was advanced through the scope and used to remove the thickened endometrial tissue anteriorly. The hysteroscope was then removed. The endometrial lining was then sharply curetted and additional sample obtained which was combined with the sample obtained with the TruClear. The Anum device was then set to a cavity length of 5.5 cm, inserted through the cervical os into the uterine cavity to the level of the fundus, and deployed. The device was sealed against the cervix. The safety checks were then passed x2 and the 2-minute treatment cycle initiated. Following completion of the treatment cycle, the Anum device was removed. The hysteroscope was advanced again into the uterine cavity and the uterine cavity inspected. A good ablation was noted from the internal os to fundus and to the cornua bilaterally. Pictures were taken for documentation purposes. The hysteroscope was removed. The tenaculum was removed. There was little bleeding from the tenaculum site, which was controlled with direct pressure sponge stick. All instruments were then removed. The patient tolerated the procedure well. Sponge, lap, needle, and instrument counts reported as correct x2. The patient was taken to the recovery room awake in a stable condition. Fluid deficit was 180 mL.
[2023-10-09] MEDS: LIDOCAINE 1% MDV 20 ML INJECTION (08:05)
[2023-10-09] MEDS: BUPIVACAINE 0.25% 30 ML INJECTION (08:05)
--- NOTE | 2023-10-09 08:38 | W.ANESCHARGE ---
Anesthesia Charges Start Date/Time Anesthesia Start Date: 10/09/23 Anesthesia Start Time: 07:49 Stop Date/Time Anesthesia Stop Date: 10/09/23 Anesthesia Stop Time: 08:37
--- NOTE | 2023-10-09 09:18 | SUR.PHASEII ---
Patient shivering, patient states she is cold. Man garcía applied at 0915. Pt given calming aroma therapy patch to help patient rest.
--- NOTE | 2023-10-09 09:34 | W.ANESCHARGE ---
Anesthesia Charges Start Date/Time Anesthesia Start Date: 10/09/23 Anesthesia Start Time: 07:49 Stop Date/Time Anesthesia Stop Date: 10/09/23 Anesthesia Stop Time: 08:37
== END 2023-10-09 10:00 | disposition home or self-care (01) ==
PROVIDERS: PCP Family Medicine; Visit Provider Obstetrics & Gynecology
PROC: 0UF98ZZ Fragmentation in Uterus, Via Natural or Artificial Opening Endoscopic (ICD-10-PCS; CPT 58563; principal; 2023-10-09 07:30)
DX: N92.0 Excessive and frequent menstruation with regular cycle (principal); Z86.718 Personal history of other venous thrombosis and embolism; R93.89 Abnormal findings on diagnostic imaging of other specified body structures
CPT/HCPCS: 58563; 00940; 00952; 81025; 88305; J0665; J1100; J1885; J2250; J2405; J2704; J3010; J3490; J7120

== ENCOUNTER 2024-12-15 07:59 | Outpatient (CLI) | payer OTHER, SELFPAY ==
--- NOTE | 2024-12-15 08:15 | CRLHL7_ITS ---
For Patients: As a result of the Century Cures Act, medical imaging exams and procedure reports are released immediately into your electronic medical record. You may view this report before your referring provider. If you have questions, please contact your health care provider. INDICATION : Right thyroid nodule. TECHNIQUE : Ultrasound-guided fine needle aspiration of thyroid nodule. COMPARISON : 11/23/2024 FINDINGS : PROCEDURE: After the informed consent and time-out, multiple fine needle aspirations were obtained from the thyroid nodule. Fine needle performed. 25 gauge needles were used. Six passes. Lidocaine was used for local anesthesia. The preliminary cytology was adequate for interpretation. Real-time imaging was used for guidance and needle placement. Post imaging ultrasound demonstrates no immediate complication. IMPRESSION : Successful fine needle aspiration of 1.1 cm right thyroid lobe nodule. Dictated by Chad Covington MD @ 12/15/2024 9:39:29 AM (Electronically Signed)
== END 2024-12-15 08:00 | disposition home or self-care (01) ==
PROVIDERS: PCP Family Medicine; Visit Provider Surgery
DX: E04.1 Nontoxic single thyroid nodule (principal)
CPT/HCPCS: 10005; 76942; 88173